=== PATIENT | male | born 1990 | race Caucasian/White ===

== ENCOUNTER 2018-01-17 11:12 | Emergency (ER) | payer OTHER ==
[~2018-01-17] VITALS: Ht 195.6 cm; Wt 83.9 kg
[~2018-01-17 11:12] MED LIST: AMOX500 PO; Bactrim Ds Tab1 EACH PO; CEPH500 PO; CODACE30 PO; CYCL10 PO; Crutch1 EACH MISC; ERYT.5TO OS; HYDACE5 PO; HYDCOR1TC TOP; IBUP600; IBUP800 PO; Keflex500 MG PO; METPRE4DP PO; NAPR500 PO; Norco 5-325 Ta1 EACH PO; OMEP40CA12 PO; OXYACE5T PO; PENVK500 PO; PROM25 PO; Percocet 5-3251 EACH PO; RXCLIN PO; RXHYDACE PO; RXOXYACE PO; SULTRIDS PO; Veetids 500500 MG PO
[2018-01-17] MEDS ORDERED: Cleocin HCl300 MG PO (11:37)
[2018-01-17] MEDS ORDERED: Norco 5-325 Ta1 EACH PO (11:37)
[2018-01-17] MEDS ORDERED: IBUP600 PO (11:37)
[2018-01-18] MEDS ORDERED: IBUP800 PO (15:19)
[2018-01-18] MEDS ORDERED: HYDR1TAB94 PO (15:19)
== END 2018-01-17 12:08 | disposition home or self-care (01) ==
LOC: ER 11:12
DX: K04.7 Periapical abscess without sinus (principal); F17.200 Nicotine dependence, unspecified, uncomplicated; Z88.6 Allergy status to analgesic agent; Z88.5 Allergy status to narcotic agent
CPT/HCPCS: 99283

== ENCOUNTER 2018-01-18 13:51 | Emergency (ER) | payer OTHER ==
[~2018-01-18] VITALS: Ht 195.6 cm; Wt 83.9 kg
[~2018-01-18 13:51] MED LIST changes: +Cleocin HCl300 MG PO; +IBUP600 PO
[2018-01-18 14:23] LABS: BASOPHILS ABSOLUTE AUTO 0.02 K/mm3 (0.00-0.23); BASOPHILS PERCENT AUTO 0 % (0-2); EOSINOPHILS ABSOLUTE AUTO 0.16 K/mm3 (0.00-0.68); EOSINOPHILS PERCENT AUTO 2 % (0-6); Hematocrit 40.3 % (37.0-53.0); Hemoglobin 13.4 g/dL (13.5-17.5); IMMATURE GRAN ABSOLUTE AUTO 0.02 K/mm3 (0.00-0.10); IMMATURE GRAN PERCENT AUTO 0 % (0-1); LYMPHOCYTES ABSOLUTE AUTO 1.78 K/mm3 (0.84-5.20); LYMPHOCYTES PERCENT AUTO 20 % (21-46); MONOCYTES ABSOLUTE AUTO 0.71 K/mm3 (0.16-1.47); MONOCYTES PERCENT AUTO 8 % (4-13); Mean Corpuscular HGB 29.3 pg (26.0-34.0); Mean Corpuscular HGB Conc 33.3 g/dL (31.5-36.5); Mean Corpuscular Volume 88 fL (80-100); Mean Platelet Volume 10.8 fL (9.1-12.4); NEUTROPHILS ABSOLUTE AUTO 6.27 K/mm3 (1.96-9.15); NEUTROPHILS PERCENT AUTO 70 % (41-73); Platelet Count 178 K/mm3 (150-400); RDW Coefficient Variation 12.8 % (11.7-14.2); RDW Standard Deviation 41.2 fL (35.1-46.3); Red Blood Cell Count 4.58 M/mm3 (4.30-5.90); White Blood Cell Count 8.96 K/mm3 (4.00-11.30)
[2018-01-18 14:49] LABS: Anion Gap 8 mmol/L (6-16); Blood Urea Nitrogen 7 mg/dL (8-24); Bun/Creatinine Ratio 10.7 (12.0-20.0); CO2, Blood 27 mmol/L (21-32); Calcium, Blood 8.9 mg/dL (8.5-10.1); Chloride, Blood 104 mmol/L (98-108); Creatinine, Blood 0.65 mg/dL (0.60-1.20); Glomerular Filtration Rate >60 (60-); Glucose, Blood 85 mg/dL (70-99); Sodium, Blood 139 mmol/L (136-145)
[2018-01-18] MEDS ORDERED: HYDR1TAB94 PO (15:19)
[2018-01-18] MEDS ORDERED: IBUP800 PO (15:19)
== END 2018-01-18 15:45 | disposition home or self-care (01) ==
LOC: ER 13:51
PROVIDERS: Physician Assistant
DX: K04.7 Periapical abscess without sinus (principal); L03.211 Cellulitis of face; F17.200 Nicotine dependence, unspecified, uncomplicated; Z88.5 Allergy status to narcotic agent; Z88.6 Allergy status to analgesic agent
CPT/HCPCS: 36415; 70487; 80048; 85025; 96365; 96375; 99284; J1885; Q9967

== ENCOUNTER 2018-01-19 03:35 | Day surgery (SDC) | payer OTHER ==
[~2018-01-19 03:35] MED LIST changes: +HYDR1TAB94 PO
== END 2018-01-19 17:53 | disposition home or self-care (01) ==
LOC: ATC 03:35
DX: K04.7 Periapical abscess without sinus (principal); L03.211 Cellulitis of face; F17.210 Nicotine dependence, cigarettes, uncomplicated
CPT/HCPCS: 96365

== ENCOUNTER 2018-07-19 15:07 | Emergency (ER) | payer OTHER ==
[~2018-07-19] VITALS: Ht 193 cm; Wt 83.9 kg
[2018-07-19] MEDS ORDERED: Veetids 500500 MG PO (16:01)
== END 2018-07-19 16:08 | disposition home or self-care (01) ==
LOC: ER 15:07
DX: K04.7 Periapical abscess without sinus (principal); Z88.5 Allergy status to narcotic agent; F17.200 Nicotine dependence, unspecified, uncomplicated
CPT/HCPCS: 99282

== ENCOUNTER 2019-02-16 10:44 | Emergency (ER) | payer OTHER ==
[~2019-02-16] VITALS: Ht 193 cm; Wt 74.4 kg
[2019-02-16 11:18] LABS: BASOPHILS ABSOLUTE AUTO 0.03 K/mm3 (0.00-0.23); BASOPHILS PERCENT AUTO 0 % (0-2); EOSINOPHILS ABSOLUTE AUTO 0.16 K/mm3 (0.00-0.68); EOSINOPHILS PERCENT AUTO 1 % (0-6); Hematocrit 45.3 % (37.0-53.0); Hemoglobin 15.1 g/dL (13.5-17.5); IMMATURE GRAN ABSOLUTE AUTO 0.04 K/mm3 (0.00-0.10); IMMATURE GRAN PERCENT AUTO 0 % (0-1); LYMPHOCYTES ABSOLUTE AUTO 1.55 K/mm3 (0.84-5.20); LYMPHOCYTES PERCENT AUTO 11 % (21-46); MONOCYTES PERCENT AUTO 8 % (4-13); Mean Corpuscular HGB 30.1 pg (26.0-34.0); Mean Corpuscular HGB Conc 33.3 g/dL (31.5-36.5); Mean Corpuscular Volume 90 fL (80-100); Mean Platelet Volume 9.1 fL (9.1-12.4); NEUTROPHILS ABSOLUTE AUTO 11.31 K/mm3 (1.96-9.15); NEUTROPHILS PERCENT AUTO 79 % (41-73); Platelet Count 250 K/mm3 (150-400); RDW Coefficient Variation 12.4 % (11.7-14.2); RDW Standard Deviation 40.6 fL (35.1-46.3); Red Blood Cell Count 5.02 M/mm3 (4.30-5.90); White Blood Cell Count 14.29 K/mm3 (4.00-11.30)
[2019-02-16 11:51] LABS: Alanine Aminotransfer (ALT/SGP 54 U/L (12-78); Albumin, Blood 3.8 g/dL (3.4-5.0); Albumin/Globulin Ratio 0.7 (0.8-1.8); Alk Phos 88 U/L (50-136); Anion Gap 4 mmol/L (6-16); Aspartate Aminotrans (AST/SGOT 24 U/L (12-37); Bilirubin, Total 0.8 mg/dL (0.1-1.0); Blood Urea Nitrogen 11 mg/dL (8-24); Bun/Creatinine Ratio 12.7 (12.0-20.0); CO2, Blood 30 mmol/L (21-32); Calcium, Blood 9.7 mg/dL (8.5-10.1); Chloride, Blood 101 mmol/L (98-108); Creatinine, Blood 0.86 mg/dL (0.60-1.20); Globulin, Blood 5.1 g/dL (2.2-4.0); Glomerular Filtration Rate >60 (60-); Glucose, Blood 109 mg/dL (70-99); Potassium, Blood 4.7 mmol/L (3.5-5.5); Sodium, Blood 135 mmol/L (136-145); Total Protein, Blood 8.9 g/dL (6.4-8.2)
[2019-02-16] MEDS ORDERED: CEPH500 PO ×2 (15:52→16:50)
[2019-02-16] MEDS ORDERED: HYDR1TAB94 PO (15:53)
[2019-02-16] MEDS ORDERED: Percocet 5-3251 EACH PO (16:50)
[2019-02-16] MEDS ORDERED: Bactrim Ds Tab1 EACH PO (16:50)
== END 2019-02-16 18:56 | disposition home or self-care (01) ==
LOC: ER 10:44
PROVIDERS: Emergency Medicine
DX: L03.114 Cellulitis of left upper limb (principal); L02.512 Cutaneous abscess of left hand; Z88.5 Allergy status to narcotic agent; Z88.8 Allergy status to other drugs, medicaments and biological substances; F17.200 Nicotine dependence, unspecified, uncomplicated
CPT/HCPCS: 10061; 36415; 73201; 80053; 83605; 85025; 87070; 87075; 87205; 96365-59; 96375-59; 99284-25; J1170; J2405; J3370; J7050; Q9967

== ENCOUNTER 2023-10-18 18:13 | Emergency (ER) | payer OTHER ==
[~2023-10-18] VITALS: Ht 195.6 cm; Wt 97.5 kg
[2023-10-18 19:59] VITALS: BP 154/78
[2023-10-18] MEDS ORDERED: CRUTCH2 XX (20:14)
== END 2023-10-18 20:20 | disposition home or self-care (01) ==
LOC: ER 18:13
DX: S82.842A Displaced bimalleolar fracture of left lower leg, initial encounter for closed fracture (principal); W01.0XXA Fall on same level from slipping, tripping and stumbling without subsequent striking against object, initial encounter; Z88.5 Allergy status to narcotic agent; Z88.8 Allergy status to other drugs, medicaments and biological substances; Z79.899 Other long term (current) drug therapy
CPT/HCPCS: 73610; 99283-25

== ENCOUNTER 2023-10-26 14:03 | Day surgery (SDC) | payer OTHER ==
[~2023-10-26] VITALS: Ht 195.6 cm; Wt 87.0 kg
[~2023-10-26 14:03] MED LIST changes: +CRUTCH2 XX
[2023-10-26] MEDS ORDERED: TRAZ50 PO (14:27)
[2023-10-26] MEDS ORDERED: HYDROCODONE-AC1 EA19 PO (14:29)
--- NOTE | 2023-10-26 16:36 | NUR ---
10/26/23 1636 Juliann Mace LATE ENTRY. TIME OUT PERFORMED AT BEDSIDE AT [address] BRICE AND DR HAWKINS PRESENT. POPLITEAL BLOCK PERFORMED BY DR BRICE AT BEDSIDE. PT TOLERATED PROCEDURE WELL.
--- NOTE | 2023-10-26 16:52 | NUR ---
10/26/23 1652 Tayla Watson ROPIVACAINE 0.5% 30 MLS MIXED & VERIFIED WITH EPI 0.15ML (1MG/ML), PER ORDER, TO MAKE ROPIVACAINE 0.5% 1:200,000 FOR INJECTION AT OPSITE BY DR ONEAL.
[2023-10-26 18:10] VITALS: BP 116/84
--- NOTE | 2023-10-26 18:18 | NUR ---
10/26/231817 Dyan Cuellar PER DR HAWKINS, BECAUSE PATIENT IS ON BUPRENORPHRINE, DO NOT GIVE FENTANYL. PATIENT IS TO BE ADVISED TO TAKE IBUPROFEN AND TYLENOL AND DISCHARGE HOME PER DR HAWKINS. 1814: DR HAWKINS IN TO DISCUSS THE ABOVE WITH PATIENT. PATIENT VERBALIZED UNDERSTANDING.
== END 2023-10-26 18:42 | disposition home or self-care (01) ==
LOC: ORSCSDS 14:03
PROVIDERS: Podiatrist Foot & Ankle Surgery
PROC: 0QSH04Z Reposition Left Tibia with Internal Fixation Device, Open Approach (ICD-10-PCS; principal; 2023-10-26 15:30)
PROC: 0SSG04Z Reposition Left Ankle Joint with Internal Fixation Device, Open Approach (ICD-10-PCS; principal; 2023-10-26 15:30)
DX: S82.52XA Displaced fracture of medial malleolus of left tibia, initial encounter for closed fracture (principal); S93.432A Sprain of tibiofibular ligament of left ankle, initial encounter; W01.0XXA Fall on same level from slipping, tripping and stumbling without subsequent striking against object, initial encounter; F17.290 Nicotine dependence, other tobacco product, uncomplicated; B19.20 Unspecified viral hepatitis C without hepatic coma
CPT/HCPCS: C1713; C1769; C1776; J0171; J0690; J1100; J1885; J2250; J2405; J2704; J2795; J3010; J7120

== ENCOUNTER 2025-08-13 14:01 | Emergency (ER) | payer SELFPAY ==
[~2025-08-13] VITALS: Ht 195.6 cm; Wt 93.0 kg
[~2025-08-13 14:01] MED LIST changes: +HYDROCODONE-AC1 EA19 PO; +TRAZ50 PO
[2025-08-13 14:04] VITALS: BP 150/89
[2025-08-13] MEDS ORDERED: Fluorescein Sod 1MG Opth Strips RIGHTEYE SCH (15:05)
[2025-08-13] MEDS ORDERED: Tetracaine HCl/Pf 0.5% Opth Soln 4 ml RIGHTEYE ONE (15:05)
[2025-08-13] MEDS ORDERED: Tobramycin 0.3% Opth Soln 5 ML RIGHTEYE ONE (15:55)
== END 2025-08-13 16:15 | disposition home or self-care (01) ==
LOC: ER 14:01
DX: T15.01XA Foreign body in cornea, right eye, initial encounter (principal); Z88.5 Allergy status to narcotic agent; Z88.8 Allergy status to other drugs, medicaments and biological substances
CPT/HCPCS: 99282; A9270